=== PATIENT | female | born 1950 | race Two or more races ===

== ENCOUNTER 2022-06-16 12:45 | Emergency (ER) | payer OTHER ==
[~2022-06-16] VITALS: Ht 152.4 cm; Wt 114.3 kg
--- NOTE | 2022-06-16 12:54 | NUR ---
TO ER BED 10, FROM HOME FOR URINE INFECTION CHECK, CONNECTED TO MONITOR, AWAITING MD ORDERS.
--- NOTE | 2022-06-16 13:49 | NUR ---
URINE COLLECTED AND SENT TO LAB
[2022-06-16 14:27] LABS: BILIRUBIN,URINE SMALL (NEGATIVE); COLOR,URINE YELLOW (YELLOW); LEUKOCYTE ESTERASE ,URINE SMALL (NEGATIVE); NITRITE, URINE NEGATIVE (NEGATIVE); PH,URINE 8.5 (5.0-8.0); PROTEIN,URINE 30 mg/dl (NEGATIVE); UGLUCOSE NEGATIVE (NEGATIVE); UROBILINOGEN,URINE >=8.0 EU/dL (0.2)
--- NOTE | 2022-06-16 15:34 | NUR ---
MADAN BENJAMIN DAUGHTER [phone]
[2022-06-16 16:04] LABS: BACTERIA,URINE 2+ /HPF (None Seen); RBC,URINE 0-2 /HPF (0-2)
[2022-06-16] MEDS ORDERED: NITR100C6 PO (16:42)
--- NOTE | 2022-06-16 16:53 | NUR ---
COVID SWAB DONE AND SENT TO LAB
[2022-06-16] MEDS ORDERED: SIMV-46 PO (17:20)
[2022-06-16] MEDS ORDERED: METF-442 PO (17:20)
[2022-06-16] MEDS ORDERED: LORA10TA7 PO (17:20)
[2022-06-16] MEDS ORDERED: ALBU8.5H8 IH (17:20)
[2022-06-16] MEDS ORDERED: GABA600T12 PO ×2 (17:20)
[2022-06-16] MEDS ORDERED: CHOL400T11 PO (17:20)
[2022-06-16] MEDS ORDERED: ASPI-1169 PO (17:20)
[2022-06-16] MEDS ORDERED: ALBU2.5V38 IH (17:20)
[2022-06-16] MEDS ORDERED: CYAN-51 PO (17:20)
[2022-06-16] MEDS ORDERED: ATEN25TA PO (17:20)
[2022-06-16 17:24] LABS: BASOPHILS % (AUTO) 0.4 % (0.0-2.0); EOSINOPHILS % (AUTO) 7.9 % (0.0-6.0); HEMATOCRIT 36 % (33-45); HEMOGLOBIN 11.1 g/dL (11.5-14.8); LYMPHOCYTES # (AUTO) 0.9 K/uL (0.8-4.8); LYMPHOCYTES % (AUTO) 22.4 % (20.0-44.0); MEAN CORPUSCULAR HGB CONC 31 g/dl (31.0-36.0); MEAN CORPUSCULAR VOLUME 87 fL (82-100); MONOCYTES # (AUTO) 0.5 K/uL (0.1-1.30); MONOCYTES % (AUTO) 13.8 % (2.0-12.0); NEUTROPHILS # (AUTO) 2.1 K/uL (1.8-8.9); NEUTROPHILS % (AUTO) 55.5 % (43.0-81.0); PLATELET COUNT (AUTO) 152 K/uL (150-450); RED BLOOD CELL COUNT(AUTO) 4.12 MIL/uL (4.0-5.2); WHITE BLOOD COUNT (AUTO) 3.8 K/uL (4.3-11.0)
--- NOTE | 2022-06-16 17:24 | NUR ---
CALLED [facility] [phone] DR. DOMINGUEZ WILL CALL FOR PEER TO PEER.
[2022-06-16 17:52] LABS: CALCIUM, SERUM 8.3 mg/dL (8.5-10.1); CREATININE 0.7 mg/dL (0.6-1.3); POTASSIUM 4.1 mmol/L (3.5-5.1)
--- NOTE | 2022-06-16 18:23 | NUR ---
PATIENCE CALLED PT GOING TO IN CANTRIL UNDER DR. TRISTON LEDESMA CALL [phone] FOR REPORT [facility] WILL TRANSPORT ETA 1944 PER MARY
[2022-06-16] MEDS ORDERED: CEFTRIAXONE 1GM BAG (ER ONLY) 50 ML IV ONE (18:26)
[2022-06-16] MEDS: CEFTRIAXONE 1GM BAG (ER ONLY) 50 ML IV ONE (18:34)
--- NOTE | 2022-06-16 18:46 | NUR ---
CALLED TO GIVE REPORT, NO ANSWER
[2022-06-16 19:31] VITALS: BP 144/74
--- NOTE | 2022-06-16 19:35 | NUR ---
REPORT GIVEN TO TURNER WEI FOR [facility]
--- NOTE | 2022-06-16 19:41 | NUR ---
[facility] FOR PT TRANSPORT TO [facility] VIA BLS. PT SI SIN STABLE CONDITION FOR [facility]. REPORT GIVEN TO EMT.
--- NOTE | 2022-06-16 19:53 | NUR ---
PT [facility] ON [place] WITH 2 [employer] AT BEDSIDE ON STABLE CONDITION. NAD NOTED.
== END 2022-06-16 19:55 | disposition short-term general hospital (02) ==
LOC: ER 14:00
DX: N39.0 Urinary tract infection, site not specified (principal); U07.1 COVID-19; R91.8 Other nonspecific abnormal finding of lung field; Z74.01 Bed confinement status; E11.9 Type 2 diabetes mellitus without complications; I11.0 Hypertensive heart disease with heart failure
CPT/HCPCS: 99285; 96365; 71045; 87426; 93005; 84145; 85025; 80048; 87077; 87040 ×2; 87086; 83605; 87186; 81001; 36415; J0696; C9803